=== PATIENT | male | born 1930 | race Two or more races ===

== ENCOUNTER 2020-05-28 11:55 | Inpatient (IN) | payer MEDICARE, MEDICAID ==
[~2020-05-28] VITALS: Ht 172.7 cm; Wt 67.2 kg
[2020-05-28 13:39] LABS: Basophils # (auto) 0.1 10 ^3/uL (0-0.2); Basophils % (auto) 1.2 % (0.0-2.0); Eosinophils # (auto) 0 10 ^3/uL (0-0.8); Eosinophils % (auto) 0.9 % (0.0-7.0); Hematocrit 31.7 % (41.0-53.0); Hemoglobin 10.3 g/dL (13.5-17.5); Lymphocytes # (auto) 0.9 10 ^3/uL (0.4-5.4); Lymphocytes % (auto) 16.7 % (10.0-50.0); Mean Corpuscular Hemoglobin 28.5 pg (28.0-32.0); Mean Corpuscular Hgb Conc. 32.4 g/dL (32.0-36.0); Mean Corpuscular Volume 87.9 fL (80.0-100.0); Monocytes # (auto) 0.6 10 ^3/uL (0-1.3); Monocytes % (auto) 10.3 % (0.0-12.0); Neutrophils % (auto) 70.9 % (37.0-80.0); Platelet Count (auto) 247 10^3/uL (140-450); Red Blood Cells 3.61 10^6/uL (4.5-5.90); Red Cell Distribution Width 17.2 % (11.8-14.3); White Blood Cell 5.6 10^3/uL (4.4-10.8)
[2020-05-28 13:52] LABS: INR 1.21 (0.9-1.15); Partial Thromboplastin Time 26.8 sec (23.0-31.2)
[2020-05-28 13:56] LABS: Calcium 8.9 mg/dL (8.5-10.1)
[2020-05-28 14:04] LABS: BUN/Creatinine Ratio 16.9; Bilirubin, Total 0.4 mg/dL (0.2-1.0); Total Protein 6.2 g/dL (6.4-8.2)
[2020-05-28 14:09] LABS: Potassium 6.3 mmol/L (3.5-5.1)
[2020-05-28] MEDS ORDERED: FUROSEMIDE 40 MG/4 ML VIAL IV ONE (15:30)
[2020-05-28] MEDS ORDERED: InsuLIN REG 1unit/0.01ml Soln (100units/ml) IV ONE (15:30)
[2020-05-28] MEDS ORDERED: DEXTROSE (50%) 50ML SYRG IV ONE (15:30)
[2020-05-28] MEDS ORDERED: SODIUM BICARBONATE 8.4% INJ 50ML SYRINGE IV ONE (15:30)
[2020-05-28] MEDS ORDERED: CALCIUM CHL 100MG/ML 1,000 MG in D5W 5% 100 ML IV ONE (15:30)
[2020-05-28] MEDS ORDERED: NITROGLYCERIN 0.4 MG SL TAB SL PRN ×2 (15:30→16:15)
[2020-05-28] MEDS ORDERED: DEXTROSE (50%) 50ML SYRG IV PRN (15:30)
[2020-05-28] MEDS ORDERED: SODIUM ZIRCONIUM CYCL 10 GM PAK PO ONE (15:30)
[2020-05-28] MEDS ORDERED: ALBUTEROL SULF 2.5 MG/0.5ML(0.5%) NEB SOLN NEB ONE (15:30)
[2020-05-28] MEDS ORDERED: MORPHINE SULF INJ 2 MG/ML SYRINGE 1ML IV PRN ×3 (15:30→16:15)
[2020-05-28] MEDS ORDERED: METOPROLOL SUCCINATE XL 50 MG TAB PO ONE (16:00)
[2020-05-28] MEDS ORDERED: ALBUTEROL SULF HFA 90MCG INH 200DOSE IN PRN (16:15)
[2020-05-28] MEDS ORDERED: ATORVASTATIN 20 MG TAB PO ONE (16:15)
[2020-05-28] MEDS ORDERED: ALUM & MAG HYDROX-SIMETH LIQ(MAALOX) 30 ML PO ONE (16:15)
[2020-05-28] MEDS ORDERED: REMDESIVIR PER PHARMACY 0 ML IV SCH (16:15)
[2020-05-28] MEDS ORDERED: ALUM & MAG HYDROX-SIMETH LIQ(MAALOX) 30 ML PO PRN (16:15)
[2020-05-28] MEDS ORDERED: DOCUSATE SOD 100 MG CAP PO PRN (16:15)
[2020-05-28] MEDS ORDERED: HYDROcodone-ACET 5/325MG TAB PO PRN (16:15)
[2020-05-28] MEDS ORDERED: ACETAMINOPHEN 500 MG TAB PO PRN (16:15)
[2020-05-28] MEDS ORDERED: NITROGLYCERIN 2% OINT 1GM PKG TD PRN (16:15)
[2020-05-28] MEDS ORDERED: LORazepam 0.5 MG TAB PO PRN (16:15)
[2020-05-28] MEDS ORDERED: ONDANSETRON HCL 4 MG/2 ML VIAL IV PRN ×2 (16:15)
[2020-05-28] MEDS ORDERED: FUROSEMIDE 20 MG/2 ML VIAL IV ONE (17:00)
[2020-05-28] MEDS: SODIUM CHLORIDE 0.9% 1,000 ML IV SCH (17:32)
[2020-05-28] MEDS: TAMSULOSIN HYDROCHLORIDE 0.4 MG CAP PO SCH (18:00)
[2020-05-28 18:23] LABS: Cholesterol 123 mg/dL (< 200); Triglycerides 76 mg/dL (< 150)
[2020-05-28] MEDS: ACCU-CHEK COMFORT CURVE STRIP VI SCH ×2 (18:29→22:50)
[2020-05-28] MEDS: InsuLIN REG 1unit/0.01ml Soln (100units/ml) SC SCH ×2 (18:29→22:54)
[2020-05-28 18:37] LABS: LDL Cholesterol 71 mg/dL (< 100)
[2020-05-28 18:56] LABS: HDL Cholesterol 46 mg/dL (40-59)
[2020-05-28 19:19] LABS: CRP High Sensitivity 0.23 mg/dL (< 0.3)
[2020-05-28] MEDS ORDERED: SODIUM CHLORIDE 0.9% 500 ML IV ONE (19:30)
[2020-05-28] MEDS ORDERED: DIGOXIN (250MCG/ML) 2 ML AMPULE IV ONE (19:30)
[2020-05-28] MEDS ORDERED: dilTIAZem 125mg/125ml BAG KIT 125 ML IV SCH (19:30)
[2020-05-28] MEDS ORDERED: dilTIAZem 25 MG/5 ML VIAL IV ONE (19:30)
[2020-05-28] MEDS: DOXYCYCLINE 100MG/250ML 250 ML IV SCH (21:37)
[2020-05-28] MEDS: METOPROLOL TARTRATE 25 MG TAB PO SCH (21:38)
[2020-05-28] MEDS ORDERED: APIXABAN 2.5 MG TAB PO SCH (22:00)
[2020-05-28] MEDS: BUDESONIDE (INHALATION) 180 MCG IH IN SCH (22:00)
[2020-05-28] MEDS ORDERED: ENOXAPARIN SOD 60 MG/0.6 ML SYRINGE SC SCH (22:00)
[2020-05-28] MEDS: SODIUM ZIRCONIUM CYCL 10 GM PAK PO SCH (22:49)
[2020-05-28 22:51] LABS: Albumin 2.8 g/dL (3.4-5.0); Calcium 9.5 mg/dL (8.5-10.1); Potassium 4.2 mmol/L (3.5-5.1)
[2020-05-28 22:54] LABS: BUN/Creatinine Ratio 14.5; Bilirubin, Total 0.3 mg/dL (0.2-1.0)
[2020-05-28] MEDS: LORazepam 0.5 MG TAB PO PRN (23:46)
[2020-05-29 01:22] LABS: Urine Bacteria FEW /hpf (None Seen); Urine Blood TRACE /uL (Negative); Urine Hyaline Cast FEW /lpf (0 - 2); Urine Mucus FEW (None Seen); Urine Specific Gravity 1.018 (1.001-1.035); Urine WBC 20 /hpf (0 - 3)
[2020-05-29 01:41] LABS: Amphetamine Screen, Urine NEGATIVE (NEGATIVE); Barbiturate Scree,Urine NEGATIVE (NEGATIVE); Benzodiazephine Screen, Urine NEGATIVE (NEGATIVE); Cannabinoid Screen, Urine NEGATIVE (NEGATIVE); Cocaine Screen, Urine NEGATIVE (NEGATIVE); Opiate Scree,Urine NEGATIVE (NEGATIVE); Phencyclidine Screen, Urine NEGATIVE (NEGATIVE)
[2020-05-29] MEDS ORDERED: diphenhdrAMINE HCL 50 MG/1 ML VL IV ONE (01:45)
[2020-05-29] MEDS ORDERED: LORazepam 2MG/ML-1ML VIAL IV ONE (01:45)
[2020-05-29] MEDS: SODIUM ZIRCONIUM CYCL 10 GM PAK PO SCH (06:00)
[2020-05-29] MEDS: FUROSEMIDE 20 MG/2 ML VIAL IV SCH ×2 (06:16→18:47)
[2020-05-29] MEDS: ACCU-CHEK COMFORT CURVE STRIP VI SCH ×3 (07:03→18:47)
[2020-05-29] MEDS: InsuLIN REG 1unit/0.01ml Soln (100units/ml) SC SCH ×3 (07:14→18:48)
[2020-05-29 07:47] LABS: Basophils # (auto) 0.1 10 ^3/uL (0-0.2); Basophils % (auto) 0.9 % (0.0-2.0); Eosinophils # (auto) 0.1 10 ^3/uL (0-0.8); Eosinophils % (auto) 1.9 % (0.0-7.0); Hematocrit 32.1 % (41.0-53.0); Hemoglobin 10.4 g/dL (13.5-17.5); Lymphocytes # (auto) 1.6 10 ^3/uL (0.4-5.4); Mean Corpuscular Hemoglobin 28.3 pg (28.0-32.0); Mean Corpuscular Hgb Conc. 32.3 g/dL (32.0-36.0); Mean Corpuscular Volume 87.6 fL (80.0-100.0); Monocytes # (auto) 0.7 10 ^3/uL (0-1.3); Monocytes % (auto) 10.4 % (0.0-12.0); Neutrophils # (auto) 4.5 10 ^3/uL (1.6-8.6); Neutrophils % (auto) 63.8 % (37.0-80.0); Platelet Count (auto) 256 10^3/uL (140-450); Red Blood Cells 3.67 10^6/uL (4.5-5.90); Red Cell Distribution Width 17.5 % (11.8-14.3); White Blood Cell 7.1 10^3/uL (4.4-10.8)
[2020-05-29 08:18] LABS: Potassium 4.2 mmol/L (3.5-5.1)
[2020-05-29 08:29] LABS: Albumin 3.1 g/dL (3.4-5.0); BUN/Creatinine Ratio 18.2; Bilirubin, Total 0.6 mg/dL (0.2-1.0); Total Protein 6.3 g/dL (6.4-8.2)
[2020-05-29] MEDS ORDERED: HEPARIN DRIP/D5W 100UNITS/ML 250 ML IV SCH (08:45)
[2020-05-29] MEDS ORDERED: HEPARIN SODIUM (PORCINE) 5000 UNITS/ML 1ML VIAL IV ONE (08:45)
[2020-05-29] MEDS ORDERED: SODIUM CHLORIDE 0.9% 500 ML IV ONE (08:45)
[2020-05-29] MEDS ORDERED: EPTIFIBATIDE DRIP(0.75MG/ML) 100 ML IV SCH (09:00)
[2020-05-29 09:29] LABS: INR 1.18 (0.9-1.15); Partial Thromboplastin Time 28.8 sec (23.0-31.2)
[2020-05-29] MEDS: EPTIFIBATIDE DRIP(0.75MG/ML) 100 ML IV SCH (09:36)
[2020-05-29] MEDS: METOPROLOL TARTRATE 25 MG TAB PO SCH ×2 (09:57→22:00)
[2020-05-29] MEDS ORDERED: METOPROLOL TARTRATE 25 MG TAB PO SCH (10:00)
[2020-05-29] MEDS ORDERED: DexAMETHasone SOD PHOS 10MG/1ML VIAL INJ IV SCH (10:00)
[2020-05-29] MEDS ORDERED: ATORVASTATIN 20 MG TAB PO SCH (10:00)
[2020-05-29] MEDS: DOXYCYCLINE 100MG/250ML 250 ML IV SCH ×2 (10:56→23:58)
[2020-05-29] MEDS: ASPirin-EC 81 mg tab PO SCH (11:00)
[2020-05-29] MEDS: ZINC SULFATE 220mg CAP or TAB PO SCH (11:00)
[2020-05-29] MEDS: DOCUSATE SOD 100 MG CAP PO SCH (11:00)
[2020-05-29] MEDS: CLOPIDOGREL BISULFATE 75 MG TAB PO SCH (11:00)
[2020-05-29] MEDS: ASCORBIC ACID 1,000 MG TAB PO SCH (11:01)
[2020-05-29] MEDS: CHOLECALCIFEROL (VITD3) 2,000 UNIT CAP PO SCH (11:01)
[2020-05-29] MEDS: FINASTERIDE 5 MG TAB PO SCH (11:01)
[2020-05-29] MEDS: BUDESONIDE (INHALATION) 180 MCG IH IN SCH ×2 (12:28→22:00)
[2020-05-29] MEDS ORDERED: IODIXANOL 320MG/ML 100ML BTL IV ONE ×3 (15:12→16:51)
[2020-05-29] MEDS ORDERED: LIDOCAINE 2%HCL (LOCAL ANESTH.) INJ 20ML MDV ONE (15:13)
[2020-05-29] MEDS ORDERED: ANGIOMAX 250 MG VIAL IV ONE (15:19)
[2020-05-29] MEDS ORDERED: MIDAZOLAM HCL 1MG/1ML-2 ML VIAL ONE (15:20)
[2020-05-29] MEDS ORDERED: SODIUM CHL 0.9% 50 ML ONE (15:20)
[2020-05-29] MEDS ORDERED: fentaNYL CITRATE 100 MCG/2 ML VL ONE (15:20)
[2020-05-29] MEDS ORDERED: HEPARIN SODIUM (PORCINE) 5000 UNITS/ML 1ML VIAL ONE (15:21)
[2020-05-29] MEDS ORDERED: VERAPAMIL 2.5MG/ML INJ 2ML VIAL IV ONE (15:21)
[2020-05-29] MEDS ORDERED: diphenhdrAMINE HCL 50 MG/1 ML VL ONE (15:48)
[2020-05-29] MEDS: TAMSULOSIN HYDROCHLORIDE 0.4 MG CAP PO SCH (18:00)
[2020-05-29] MEDS ORDERED: LORazepam 0.5 MG TAB PO PRN (18:00)
[2020-05-29] MEDS: SODIUM CHLORIDE 0.9% 1,000 ML IV SCH (18:47)
[2020-05-29 20:00] VITALS: BP 98/46
[2020-05-29 22:00] VITALS: BP 98/46
[2020-05-29] MEDS: ATORVASTATIN 20 MG TAB PO SCH (22:00)
[2020-05-30] MEDS: InsuLIN REG 1unit/0.01ml Soln (100units/ml) SC SCH ×5 (00:01→21:21)
[2020-05-30] MEDS: ACCU-CHEK COMFORT CURVE STRIP VI SCH ×5 (00:03→21:20)
[2020-05-30] MEDS: EPTIFIBATIDE DRIP(0.75MG/ML) 100 ML IV SCH (03:48)
[2020-05-30 05:19] VITALS: BP 113/71
[2020-05-30] MEDS: FUROSEMIDE 20 MG/2 ML VIAL IV SCH ×2 (06:36→18:00)
[2020-05-30 06:51] LABS: Basophils # (auto) 0 10 ^3/uL (0-0.2); Basophils % (auto) 0.5 % (0.0-2.0); Eosinophils # (auto) 0 10 ^3/uL (0-0.8); Eosinophils % (auto) 0.1 % (0.0-7.0); Hematocrit 30.1 % (41.0-53.0); Lymphocytes # (auto) 0.9 10 ^3/uL (0.4-5.4); Mean Corpuscular Hemoglobin 27.9 pg (28.0-32.0); Mean Corpuscular Hgb Conc. 33.1 g/dL (32.0-36.0); Mean Corpuscular Volume 84.1 fL (80.0-100.0); Monocytes # (auto) 0.7 10 ^3/uL (0-1.3); Monocytes % (auto) 9.3 % (0.0-12.0); Neutrophils # (auto) 6.2 10 ^3/uL (1.6-8.6); Neutrophils % (auto) 79.1 % (37.0-80.0); Nucleated Red Blood Cells % 0.1 %; Platelet Count (auto) 263 10^3/uL (140-450); Red Blood Cells 3.58 10^6/uL (4.5-5.90); Red Cell Distribution Width 17.7 % (11.8-14.3); White Blood Cell 7.8 10^3/uL (4.4-10.8)
[2020-05-30 07:07] LABS: Anion Gap 11 (5-15); Blood Urea Nitrogen 24 mg/dL (7-18); Carbon Dioxide 21 mmol/L (21-32); Chloride 104 mmol/L (98-107); Glucose 151 mg/dL (74-106); Potassium 4.4 mmol/L (3.5-5.1); Sodium 136 mmol/L (136-145)
[2020-05-30 07:09] LABS: BUN/Creatinine Ratio 21.1; GFR African American 78 mL/min; GFR Non-African American 64 mL/min
[2020-05-30 07:13] LABS: Alanine Aminotransferase 29 U/L (16-61); Alkaline Phosphatase 50 U/L (45-117); Aspartate Aminotransferase 60 U/L (15-37); Bilirubin, Total 0.6 mg/dL (0.2-1.0)
[2020-05-30 09:00] VITALS: BP 128/51
[2020-05-30] MEDS: cefTRIAXone 1GM/50ML D5W 50 ML IV SCH (09:00)
[2020-05-30] MEDS: ASPirin-EC 81 mg tab PO SCH (09:15)
[2020-05-30] MEDS: DOCUSATE SOD 100 MG CAP PO SCH (09:15)
[2020-05-30] MEDS: METOPROLOL TARTRATE 25 MG TAB PO SCH (09:15)
[2020-05-30] MEDS: ASCORBIC ACID 1,000 MG TAB PO SCH (09:15)
[2020-05-30] MEDS: CHOLECALCIFEROL (VITD3) 2,000 UNIT CAP PO SCH (09:15)
[2020-05-30] MEDS: FINASTERIDE 5 MG TAB PO SCH (09:15)
[2020-05-30] MEDS: ZINC SULFATE 220mg CAP or TAB PO SCH (09:15)
[2020-05-30] MEDS: CLOPIDOGREL BISULFATE 75 MG TAB PO SCH (09:15)
[2020-05-30 09:22] LABS: Basophils # (auto) 0.1 10 ^3/uL (0-0.2); Basophils % (auto) 0.5 % (0.0-2.0); Eosinophils # (auto) 0 10 ^3/uL (0-0.8); Eosinophils % (auto) 0.1 % (0.0-7.0); Hemoglobin 10.2 g/dL (13.5-17.5); Lymphocytes % (auto) 10.4 % (10.0-50.0); Mean Corpuscular Hemoglobin 28.2 pg (28.0-32.0); Mean Corpuscular Volume 85.5 fL (80.0-100.0); Monocytes # (auto) 0.8 10 ^3/uL (0-1.3); Monocytes % (auto) 7.7 % (0.0-12.0); Neutrophils # (auto) 8.2 10 ^3/uL (1.6-8.6); Neutrophils % (auto) 81.3 % (37.0-80.0); Platelet Count (auto) 287 10^3/uL (140-450); Red Blood Cells 3.62 10^6/uL (4.5-5.90); Red Cell Distribution Width 17.4 % (11.8-14.3); White Blood Cell 10.1 10^3/uL (4.4-10.8)
[2020-05-30] MEDS: BUDESONIDE (INHALATION) 180 MCG IH IN SCH ×2 (10:00→22:00)
[2020-05-30] MEDS: DOXYCYCLINE 100MG/250ML 250 ML IV SCH ×2 (10:00→21:34)
[2020-05-30 12:00] VITALS: BP 81/66
[2020-05-30] MEDS ORDERED: SODIUM CHLORIDE 0.9% 500 ML IV ONE (13:00)
[2020-05-30] MEDS: SODIUM CHLORIDE 0.9% 1,000 ML IV SCH (16:15)
[2020-05-30 17:00] VITALS: BP 99/56
[2020-05-30] MEDS: TAMSULOSIN HYDROCHLORIDE 0.4 MG CAP PO SCH (19:43)
[2020-05-30] MEDS: ATORVASTATIN 20 MG TAB PO SCH (21:34)
[2020-05-30 22:00] VITALS: BP 99/52
[2020-05-31 05:00] VITALS: BP 104/61
[2020-05-31] MEDS: FUROSEMIDE 20 MG/2 ML VIAL IV SCH ×2 (05:41→18:00)
[2020-05-31 05:44] LABS: Basophils # (auto) 0.1 10 ^3/uL (0-0.2); Basophils % (auto) 1.1 % (0.0-2.0); Eosinophils # (auto) 0.2 10 ^3/uL (0-0.8); Eosinophils % (auto) 2.7 % (0.0-7.0); Hematocrit 31.5 % (41.0-53.0); Hemoglobin 9.9 g/dL (13.5-17.5); Lymphocytes # (auto) 1.4 10 ^3/uL (0.4-5.4); Lymphocytes % (auto) 15.5 % (10.0-50.0); Mean Corpuscular Hgb Conc. 31.5 g/dL (32.0-36.0); Mean Corpuscular Volume 88.8 fL (80.0-100.0); Monocytes # (auto) 0.9 10 ^3/uL (0-1.3); Monocytes % (auto) 9.8 % (0.0-12.0); Neutrophils # (auto) 6.3 10 ^3/uL (1.6-8.6); Neutrophils % (auto) 70.9 % (37.0-80.0); Platelet Count (auto) 248 10^3/uL (140-450); Red Blood Cells 3.54 10^6/uL (4.5-5.90); Red Cell Distribution Width 17.8 % (11.8-14.3); White Blood Cell 8.9 10^3/uL (4.4-10.8)
[2020-05-31 06:02] LABS: Potassium 4.4 mmol/L (3.5-5.1)
[2020-05-31 06:13] LABS: Albumin 2.6 g/dL (3.4-5.0); BUN/Creatinine Ratio 27.4; Bilirubin, Total 0.8 mg/dL (0.2-1.0); Calcium 9.2 mg/dL (8.5-10.1); Total Protein 5.7 g/dL (6.4-8.2)
[2020-05-31] MEDS: ACCU-CHEK COMFORT CURVE STRIP VI SCH ×3 (06:16→17:36)
[2020-05-31] MEDS: InsuLIN REG 1unit/0.01ml Soln (100units/ml) SC SCH ×4 (06:16→22:41)
[2020-05-31 09:00] VITALS: BP 142/73
[2020-05-31] MEDS ORDERED: LORazepam 2MG/ML-1ML VIAL IV PRN (09:15)
[2020-05-31] MEDS: cefTRIAXone 1GM/50ML D5W 50 ML IV SCH (09:30)
[2020-05-31 09:45] LABS: Folate (Folic Acid) 22.07 ng/mL (5.38-24)
[2020-05-31] MEDS: ASPirin-EC 81 mg tab PO SCH (09:45)
[2020-05-31] MEDS: ASCORBIC ACID 1,000 MG TAB PO SCH (09:45)
[2020-05-31] MEDS: FINASTERIDE 5 MG TAB PO SCH (09:45)
[2020-05-31] MEDS: DOCUSATE SOD 100 MG CAP PO SCH (09:45)
[2020-05-31] MEDS: CHOLECALCIFEROL (VITD3) 2,000 UNIT CAP PO SCH (09:45)
[2020-05-31] MEDS: CLOPIDOGREL BISULFATE 75 MG TAB PO SCH (09:45)
[2020-05-31] MEDS: ZINC SULFATE 220mg CAP or TAB PO SCH (09:45)
[2020-05-31] MEDS: BUDESONIDE (INHALATION) 180 MCG IH IN SCH ×2 (10:00→22:00)
[2020-05-31] MEDS: DOXYCYCLINE 100MG/250ML 250 ML IV SCH ×3 (10:15→22:00)
[2020-05-31] MEDS: LORazepam 0.5 MG TAB PO PRN ×2 (14:40→21:45)
[2020-05-31] MEDS: SODIUM CHLORIDE 0.9% 1,000 ML IV SCH (16:15)
[2020-05-31 17:00] VITALS: BP 110/67
[2020-05-31] MEDS: TAMSULOSIN HYDROCHLORIDE 0.4 MG CAP PO SCH (18:00)
[2020-05-31] MEDS: HALOPERIDOL LACTATE 5 MG/ML INJ VIAL IM PRN (21:45)
[2020-06-01] VITALS: BP 85/46
[2020-06-01] MEDS: ACCU-CHEK COMFORT CURVE STRIP VI SCH ×4 (00:06→17:51)
[2020-06-01] MEDS: ATORVASTATIN 20 MG TAB PO SCH (00:06)
[2020-06-01] MEDS: CARVEDILOL 3.125 MG TAB PO SCH ×2 (00:28→13:56)
[2020-06-01 02:00] VITALS: BP 122/61
[2020-06-01] MEDS: InsuLIN REG 1unit/0.01ml Soln (100units/ml) SC SCH ×3 (06:25→17:52)
[2020-06-01] MEDS: FUROSEMIDE 20 MG/2 ML VIAL IV SCH ×2 (06:37→17:57)
[2020-06-01 07:15] LABS: Basophils # (auto) 0.1 10 ^3/uL (0-0.2); Basophils % (auto) 0.8 % (0.0-2.0); Eosinophils # (auto) 0.5 10 ^3/uL (0-0.8); Eosinophils % (auto) 5.3 % (0.0-7.0); Hematocrit 31.6 % (41.0-53.0); Hemoglobin 10.3 g/dL (13.5-17.5); Lymphocytes # (auto) 1.3 10 ^3/uL (0.4-5.4); Lymphocytes % (auto) 15.5 % (10.0-50.0); Mean Corpuscular Hemoglobin 28.1 pg (28.0-32.0); Mean Corpuscular Hgb Conc. 32.6 g/dL (32.0-36.0); Mean Corpuscular Volume 86.3 fL (80.0-100.0); Monocytes % (auto) 11.2 % (0.0-12.0); Neutrophils # (auto) 5.7 10 ^3/uL (1.6-8.6); Neutrophils % (auto) 67.2 % (37.0-80.0); Platelet Count (auto) 253 10^3/uL (140-450); Red Blood Cells 3.66 10^6/uL (4.5-5.90); Red Cell Distribution Width 18.1 % (11.8-14.3); White Blood Cell 8.5 10^3/uL (4.4-10.8)
[2020-06-01 07:49] LABS: BUN/Creatinine Ratio 27.4; Calcium 8.8 mg/dL (8.5-10.1); Potassium 3.9 mmol/L (3.5-5.1)
[2020-06-01 07:58] LABS: CRP High Sensitivity 2.91 mg/dL (< 0.3)
[2020-06-01] MEDS: cefTRIAXone 1GM/50ML D5W 50 ML IV SCH (08:53)
[2020-06-01 09:00] VITALS: BP 120/70
[2020-06-01] MEDS: FINASTERIDE 5 MG TAB PO SCH (10:00)
[2020-06-01] MEDS: CHOLECALCIFEROL (VITD3) 2,000 UNIT CAP PO SCH (10:00)
[2020-06-01] MEDS: ASCORBIC ACID 1,000 MG TAB PO SCH (10:00)
[2020-06-01] MEDS: ASPirin-EC 81 mg tab PO SCH (10:00)
[2020-06-01] MEDS: DOCUSATE SOD 100 MG CAP PO SCH (10:00)
[2020-06-01] MEDS: CLOPIDOGREL BISULFATE 75 MG TAB PO SCH (10:00)
[2020-06-01] MEDS: ZINC SULFATE 220mg CAP or TAB PO SCH (10:00)
[2020-06-01] MEDS: BUDESONIDE (INHALATION) 180 MCG IH IN SCH ×2 (10:00→22:00)
[2020-06-01] MEDS: DOXYCYCLINE 100MG/250ML 250 ML IV SCH ×2 (10:42→22:04)
[2020-06-01 12:32] VITALS: BP 110/61
[2020-06-01] MEDS ORDERED: D5W/SOD CHLO 0.9% 1,000 ML IV SCH ×2 (13:30→20:00)
[2020-06-01] MEDS: LISINOPRIL 5 MG TAB PO SCH (13:56)
[2020-06-01] MEDS ORDERED: PPN PER PHARMACY 0 ML IV SCH (16:30)
[2020-06-01 17:00] VITALS: BP 117/53
[2020-06-01 17:46] LABS: Albumin 2.4 g/dL (3.4-5.0); Bilirubin, Direct 0.2 mg/dL (0-0.2); Magnesium 1.7 mg/dL (1.6-2.6); Phosphorus 2.7 mg/dL (2.5-4.90)
[2020-06-01 17:49] LABS: Bilirubin, Total 0.6 mg/dL (0.2-1.0); Total Protein 5.4 g/dL (6.4-8.2)
[2020-06-01] MEDS: TAMSULOSIN HYDROCHLORIDE 0.4 MG CAP PO SCH (18:00)
[2020-06-01] MEDS ORDERED: AMINO ACID INFUSION IN D10W 1,000 ML IV NR (20:00)
[2020-06-01] MEDS: HALOPERIDOL LACTATE 5 MG/ML INJ VIAL IM PRN (22:35)
[2020-06-02] VITALS: BP 104/50
[2020-06-02] MEDS ORDERED: DEXTROSE (50%) 50ML SYRG IV SCH
[2020-06-02] MEDS: ACCU-CHEK COMFORT CURVE STRIP VI SCH ×2 (00:28→06:00)
[2020-06-02] MEDS: ATORVASTATIN 20 MG TAB PO SCH (00:28)
[2020-06-02] MEDS: InsuLIN REG 1unit/0.01ml Soln (100units/ml) SC SCH ×2 (00:52→06:00)
[2020-06-02 05:51] LABS: Basophils # (auto) 0 10 ^3/uL (0-0.2); Basophils % (auto) 0.6 % (0.0-2.0); Eosinophils # (auto) 0.3 10 ^3/uL (0-0.8); Eosinophils % (auto) 3.5 % (0.0-7.0); Hematocrit 34.7 % (41.0-53.0); Hemoglobin 11.1 g/dL (13.5-17.5); Lymphocytes # (auto) 1.2 10 ^3/uL (0.4-5.4); Lymphocytes % (auto) 14.8 % (10.0-50.0); Mean Corpuscular Hemoglobin 27.5 pg (28.0-32.0); Mean Corpuscular Volume 86.1 fL (80.0-100.0); Monocytes # (auto) 0.9 10 ^3/uL (0-1.3); Monocytes % (auto) 11.7 % (0.0-12.0); Neutrophils # (auto) 5.4 10 ^3/uL (1.6-8.6); Neutrophils % (auto) 69.4 % (37.0-80.0); Nucleated Red Blood Cells % 0.4 %; Platelet Count (auto) 281 10^3/uL (140-450); Red Blood Cells 4.03 10^6/uL (4.5-5.90); Red Cell Distribution Width 18.4 % (11.8-14.3); White Blood Cell 7.8 10^3/uL (4.4-10.8)
[2020-06-02 06:29] LABS: Albumin 2.6 g/dL (3.4-5.0); BUN/Creatinine Ratio 17.5; Calcium 8.7 mg/dL (8.5-10.1); Magnesium 1.6 mg/dL (1.6-2.6); Potassium 3.6 mmol/L (3.5-5.1)
[2020-06-02] MEDS: FUROSEMIDE 20 MG/2 ML VIAL IV SCH (06:30)
[2020-06-02 06:31] LABS: Bilirubin, Total 0.6 mg/dL (0.2-1.0); Phosphorus 1.8 mg/dL (2.5-4.90); Total Protein 5.6 g/dL (6.4-8.2)
[2020-06-02 07:07] LABS: Pre Albumin 8.9 mg/dL (20.0-40.0)
[2020-06-02 08:00] VITALS: BP 101/64
[2020-06-02] MEDS ORDERED: POTASSIUM PHOSPHATE 44 MEQ in D5W 5% 250 ML IV ONE (09:15)
[2020-06-02] MEDS: cefTRIAXone 1GM/50ML D5W 50 ML IV SCH (09:22)
[2020-06-02] MEDS: ASCORBIC ACID 1,000 MG TAB PO SCH (10:00)
[2020-06-02] MEDS: LISINOPRIL 5 MG TAB PO SCH (10:00)
[2020-06-02] MEDS: CARVEDILOL 3.125 MG TAB PO SCH (10:00)
[2020-06-02] MEDS: CHOLECALCIFEROL (VITD3) 2,000 UNIT CAP PO SCH (10:26)
[2020-06-02] MEDS: ASPirin-EC 81 mg tab PO SCH (10:28)
[2020-06-02] MEDS: ZINC SULFATE 220mg CAP or TAB PO SCH (10:28)
[2020-06-02] MEDS: DOCUSATE SOD 100 MG CAP PO SCH (10:28)
[2020-06-02] MEDS: CLOPIDOGREL BISULFATE 75 MG TAB PO SCH (10:29)
[2020-06-02] MEDS: DOXYCYCLINE 100MG/250ML 250 ML IV SCH (10:31)
[2020-06-02] MEDS ORDERED: ATROPINE SULF 1 MG/10ml SYR IM ONE ×2 (11:00)
[2020-06-02] MEDS ORDERED: ATROPINE SULFATE 1 MG/1 ML VIAL ONE (11:03)
[2020-06-02] MEDS ORDERED: DOPamine 1600MCG/ML D5W 250 ML IV SCH (11:15)
[2020-06-02] MEDS ORDERED: EPINEPHrine HCL 1 MG/10 ML SYRG IV ONE (13:46)
[2020-06-02] MEDS ORDERED: PPN PER PHARMACY IV NR ×10 (20:00)
== END 2020-06-02 11:28 | DRG 174 ==
LOC: ER 11:55 → EDBD 11:55 → TELE 11:56 → TELE-CENTR 05-29 18:40
PROVIDERS: ADMIT Hospitalist; ATTEND Family Medicine
PROC: 027135Z Dilation of Coronary Artery, Two Arteries with Two Drug-eluting Intraluminal Devices, Percutaneous Approach (ICD-10-PCS; principal; 2020-05-29)
PROC: 4A023N7 Measurement of Cardiac Sampling and Pressure, Left Heart, Percutaneous Approach (ICD-10-PCS; 2020-05-29)
PROC: B2111ZZ Fluoroscopy of Multiple Coronary Arteries using Low Osmolar Contrast (ICD-10-PCS; 2020-05-29)
PROC: B2151ZZ Fluoroscopy of Left Heart using Low Osmolar Contrast (ICD-10-PCS; 2020-05-29)
PROC: 05H933Z Insertion of Infusion Device into Right Brachial Vein, Percutaneous Approach (ICD-10-PCS; 2020-06-01)
PROC: B54MZZA Ultrasonography of Right Upper Extremity Veins, Guidance (ICD-10-PCS; 2020-06-01)
PROC: 5A12012 Performance of Cardiac Output, Single, Manual (ICD-10-PCS; 2020-06-02)
PROC: 0BH17EZ Insertion of Endotracheal Airway into Trachea, Via Natural or Artificial Opening (ICD-10-PCS; 2020-06-02)
DX: I21.19 ST elevation (STEMI) myocardial infarction involving other coronary artery of inferior wall (principal); N17.0 Acute kidney failure with tubular necrosis; I50.23 Acute on chronic systolic (congestive) heart failure; E11.65 Type 2 diabetes mellitus with hyperglycemia; J84.9 Interstitial pulmonary disease, unspecified; I25.10 Atherosclerotic heart disease of native coronary artery without angina pectoris; I48.19 Other persistent atrial fibrillation; I63.9 Cerebral infarction, unspecified; E87.5 Hyperkalemia; D63.8 Anemia in other chronic diseases classified elsewhere; D68.69 Other thrombophilia; E11.22 Type 2 diabetes mellitus with diabetic chronic kidney disease; G93.41 Metabolic encephalopathy; E44.0 Moderate protein-calorie malnutrition; F17.200 Nicotine dependence, unspecified, uncomplicated; I08.1 Rheumatic disorders of both mitral and tricuspid valves; R09.2 Respiratory arrest; I13.0 Hypertensive heart and chronic kidney disease with heart failure and stage 1 through stage 4 chronic kidney disease, or unspecified chronic kidney disease; I27.20 Pulmonary hypertension, unspecified; I48.92 Unspecified atrial flutter; I67.2 Cerebral atherosclerosis; I70.0 Atherosclerosis of aorta; K57.90 Diverticulosis of intestine, part unspecified, without perforation or abscess without bleeding; N18.9 Chronic kidney disease, unspecified; N40.0 Benign prostatic hyperplasia without lower urinary tract symptoms; Z20.828 Contact with and (suspected) exposure to other viral communicable diseases; Z83.3 Family history of diabetes mellitus; Z95.5 Presence of coronary angioplasty implant and graft; R29.700 NIHSS score 0; N30.90 Cystitis, unspecified without hematuria
CPT/HCPCS: 36415; 51702; 70450; 70551; 71045; 71250; 72125; 80048; 80053; 80061; 80076; 80307; 81001; 82040; 82140; 82565; 82607; 82728; 82746; 82962; 83036; 83605; 83615; 83735; 83880; 84100; 84443; 84478; 84484; 85025; 85379; 85610; 85730; 86141; 87040; 87086; 87426; 92610; 92928; 93306; 93458; 93886; 94640; 95819; 99152; 99153; C1874; C1887; G0378; J0461; J0696; J1100; J1815; J2250; J3490; J7042; J7060; Q9967